=== PATIENT | male | born 1940 | race Caucasian/White ===

== ENCOUNTER 2019-11-17 07:16 | Day surgery (SDC) | payer OTHER ==
[2019-11-13 09:43] VITALS: BP 137/70
[2019-11-13 12:12] LABS: BASOPHILS % (AUTO) 0.4 % (0.0-5.0); HEMATOCRIT 40.6 % (42-54); LYMPHOCYTES % (AUTO) 19.7 % (21.0-51.0); MEAN CORPUSCULAR HEMOGLOBIN 32.3 pg (27.0-33.0); MEAN CORPUSCULAR VOLUME 97.8 fL (79-99); MONOCYTES % (AUTO) 5.7 % (3.0-13.0); NEUTROPHILS % (AUTO) 72.1 % (40.0-77.0); PLATELET COUNT (AUTO) 253 K/uL (130-400); RED BLOOD CELL COUNT(AUTO) 4.15 MIL/uL (4.50-6.20); RED CELL DISTRIBUTION WIDTH 14.3 % (11.0-15.5); WHITE BLOOD COUNT (AUTO) 7.4 K/uL (4.8-10.8)
[2019-11-13 12:20] LABS: CREATININE 0.9 mg/dL (0.5-1.5); POTASSIUM 4.1 mmol/L (3.5-5.1)
[2019-11-13 12:23] LABS: INR 1.02 (0.85-1.15); PARTIAL THROMBOPLASTIN TIME 25.2 SEC (26.3-35.5)
[2019-11-16 08:12] LABS: APPEARANCE,URINE Clear (CLEAR); BILIRUBIN,URINE Negative (NEGATIVE); COLOR,URINE Yellow (YELLOW); GLUCOSE, URINE (UA) Negative (NEGATIVE); KETONES,URINE Negative (NEGATIVE); LEUKOCYTE ESTERASE ,URINE Small (NEGATIVE); NITRATE,URINE Negative (NEGATIVE); OCCULT BLOOD,URINE Negative (NEGATIVE); PROTEIN,URINE Negative (NEGATIVE)
[2019-11-16 09:03] LABS: BACTERIA,URINE Few /HPF (None Seen); CALCIUM OXALATE CRYSTALS,UR Moderate /LPF (None Seen); RBC,URINE 0-1 /HPF (0-1); SQUAMOUS EPITHELIAL CELL,UR 0-2 /HPF (0-2)
[2019-11-17] VITALS (10 sets, daily range): BP systolic 140–159; BP diastolic 56–91
[~2019-11-17] VITALS: Ht 180.3 cm; Wt 86.0 kg
[~2019-11-17 07:16] MED LIST: APIX5TAB PO; ATOR40TA71 PO; CALC-866 PO; DILT240C94 PO; FINA5TAB41 PO; ICOS1CAP PO; METO-391 PO; MULT-660 PO; SODIUM CHLORIDE 0.9% 500ML 500 ML IV SCH; TERA5CAP4 PO; VIT1CAPS47 PO
[2019-11-17] MEDS ORDERED: SODIUM CHLORIDE 0.9% 1000ML 1,000 ML IV ONE (07:41)
[2019-11-17] MEDS ORDERED: HEPARIN SODIUM 1000UNIT/ML 10ML VIAL ONE (08:39)
[2019-11-17] MEDS ORDERED: BIVALIRUDIN 250 MG/VIAL IV ONE (08:39)
[2019-11-17] MEDS ORDERED: MIDAZOLAM HCL 1 MG/ML 2ML VIAL ONE (08:39)
[2019-11-17] MEDS ORDERED: IOHEXOL 350 MG/ML 100ML INFUS..BTL IV ONE (08:39)
[2019-11-17] MEDS ORDERED: IOHEXOL-350 50ML VIAL IV ONE (08:39)
[2019-11-17] MEDS ORDERED: FENTANYL CITRATE PF 50 MCG/1 ML 2ML VIAL ONE (08:40)
[2019-11-17] MEDS ORDERED: NITROGLYCERIN 2 MG/VIAL VIAL IV ONE (08:40)
[2019-11-17] MEDS ORDERED: LIDOCAINE HCL 2% 20ML ONE (08:40)
[2019-11-17] MEDS ORDERED: SODIUM BICARB 50MEQ 50ML VIAL ONE (08:43)
--- NOTE | 2019-11-17 09:45 | NUR ---
PATIENT TAKEN TO [employer]PER[employer] VIA BED BY JANEL ROBERSON.
--- NOTE | 2019-11-17 09:53 | NUR ---
PATIENT ARRIVED TO DAY PATIENT ACCOMPANIED BY SELF. PATIENT AAOX3, RESPIRATIONS UNLABORED, VITAL SIGNS STABLE. DENIES ANY PAIN AT THIS TIME. PROCEDURE VERIFIED AND CONFIRMED WITH PATIENT, HOSPITAL ROUTINE EXPLAINED. ALL QUESTIONS ANSWERED,.
--- NOTE | 2019-11-17 15:36 | NUR ---
DISCHARGE INSTRUCTIONS PROVIDED VIA TELEPHONE TO PATIENT'S SPOUSE (JOSE RAUL DUMAS). FOLLOW UP APPOINTMENT PROVIDED AND INSTRUCTIONS PROVIDED ON FEMORAL SITE CARE. ALL QUESTIONS/CONCERNS ADDRESSED.
--- NOTE | 2019-11-17 16:02 | NUR ---
HANDOFF REPORT GIVEN TO VANESA USING SBAR AT PATIENT'S BEDSIDE.
--- NOTE | 2019-11-17 16:05 | NUR ---
PT AAOX3, NO C/O PAIN TO RT GROIN SITE. INSTRUCTIONS GIVEN TO FAMILY BY WERNER ISLAS . IV D/C , CATHETER INTACT. PT DRESSED WITH ASSISTANCE. PT TAKEN OUT VIA WHEELCHAIR TO CAR, DRIVEN HOME BY FAMILY.
== END 2019-11-17 16:00 | disposition home or self-care (01) ==
LOC: DAH 07:16
PROVIDERS: ATTEND Internal Medicine Cardiovascular Disease
DX: I11.0 Hypertensive heart disease with heart failure (principal); I50.32 Chronic diastolic (congestive) heart failure; I50.22 Chronic systolic (congestive) heart failure; I48.0 Paroxysmal atrial fibrillation; Z79.01 Long term (current) use of anticoagulants; Z79.899 Other long term (current) drug therapy; E78.00 Pure hypercholesterolemia, unspecified
CPT/HCPCS: 36415; 71045; 80048; 81001; 85025; 85610; 85730; 93005; 93460; A4215; A4216; A4221; A4222; A4223 ×3; A4606; A4663; C1760; C1894 ×3; J1644 ×2; J2250; J3010; J3490 ×3; J7030; Q9965 ×2; Q9967; 99156; 99157; J0583

== ENCOUNTER 2021-08-15 11:37 | Emergency (ER) | payer OTHER ==
[~2021-08-15] VITALS: Ht 182.9 cm; Wt 88.5 kg
[~2021-08-15 11:37] MED LIST changes: -ICOS1CAP PO; -SODIUM CHLORIDE 0.9% 500ML 500 ML IV SCH
[2021-08-15 11:48] VITALS: BP 136/75
[2021-08-15 11:58] LABS: BASOPHILS % (AUTO) 0.8 % (0.0-5.0); EOSINOPHILS % (AUTO) 1.9 % (0.0-8.0); HEMATOCRIT 38.2 % (42-54); LYMPHOCYTES % (AUTO) 16.2 % (21.0-51.0); MEAN CORPUSCULAR HEMOGLOBIN 32.8 pg (27.0-33.0); MEAN CORPUSCULAR HGB CONC 33.2 g/dL (32.0-36.0); MEAN CORPUSCULAR VOLUME 98.7 fL (79-99); MONOCYTES % (AUTO) 7.7 % (3.0-13.0); NEUTROPHILS % (AUTO) 73.1 % (40.0-77.0); PLATELET COUNT (AUTO) 223 K/uL (130-400); RED BLOOD CELL COUNT(AUTO) 3.87 MIL/uL (4.50-6.20); RED CELL DISTRIBUTION WIDTH 15.3 % (11.0-15.5); WHITE BLOOD COUNT (AUTO) 7.9 K/uL (4.8-10.8)
[2021-08-15 12:12] LABS: CREATININE 0.9 mg/dL (0.5-1.5); POTASSIUM 4.3 mmol/L (3.5-5.1)
[2021-08-15 12:16] LABS: ALBUMIN 3.8 g/dL (3.5-5.0); BILIRUBIN,TOTAL 0.4 mg/dL (0.2-1.0)
== END 2021-08-15 13:38 | disposition home or self-care (01) ==
LOC: EDH 11:37
DX: R07.89 Other chest pain (principal); I48.91 Unspecified atrial fibrillation; K21.9 Gastro-esophageal reflux disease without esophagitis; E78.00 Pure hypercholesterolemia, unspecified; I10 Essential (primary) hypertension; Z79.899 Other long term (current) drug therapy; Z79.01 Long term (current) use of anticoagulants; Z98.890 Other specified postprocedural states
CPT/HCPCS: 36415; 71045; 80053; 83880; 84484; 85025; 93005

== ENCOUNTER 2021-08-25 07:35 | Day surgery (SDC) | payer OTHER ==
[2021-08-24 12:58] LABS: BASOPHILS % (AUTO) 0.5 % (0.0-5.0); EOSINOPHILS % (AUTO) 2.1 % (0.0-8.0); HEMATOCRIT 41.4 % (42-54); LYMPHOCYTES % (AUTO) 20.8 % (21.0-51.0); MEAN CORPUSCULAR HEMOGLOBIN 31.8 pg (27.0-33.0); MEAN CORPUSCULAR HGB CONC 32.6 g/dL (32.0-36.0); MEAN CORPUSCULAR VOLUME 97.6 fL (79-99); MONOCYTES % (AUTO) 8.2 % (3.0-13.0); NEUTROPHILS % (AUTO) 68.2 % (40.0-77.0); PLATELET COUNT (AUTO) 257 K/uL (130-400); RED BLOOD CELL COUNT(AUTO) 4.24 MIL/uL (4.50-6.20); WHITE BLOOD COUNT (AUTO) 8.4 K/uL (4.8-10.8)
[2021-08-24 13:08] LABS: INR 1.07 (0.85-1.15); PROTHROMBIN TIME 11.6 SEC (9.6-11.6)
[2021-08-24 13:09] LABS: CREATININE 0.8 mg/dL (0.5-1.5); POTASSIUM 4.4 mmol/L (3.5-5.1)
[2021-08-24 13:10] LABS: PARTIAL THROMBOPLASTIN TIME 25.6 SEC (26.3-35.5)
[2021-08-24 13:23] VITALS: BP 140/72
[2021-08-24 14:30] LABS: APPEARANCE,URINE Clear (CLEAR); BILIRUBIN,URINE Negative (NEGATIVE); COLOR,URINE Yellow (YELLOW); GLUCOSE, URINE (UA) Negative (NEGATIVE); KETONES,URINE Negative (NEGATIVE); LEUKOCYTE ESTERASE ,URINE Small (NEGATIVE); NITRATE,URINE Negative (NEGATIVE); OCCULT BLOOD,URINE Negative (NEGATIVE); PROTEIN,URINE Negative (NEGATIVE)
[2021-08-24 14:45] LABS: BACTERIA,URINE Few /HPF (None Seen); RBC,URINE 0-1 /HPF (0-1)
[2021-08-24 14:46] LABS: CALCIUM OXALATE CRYSTALS,UR Rare /LPF (None Seen); SQUAMOUS EPITHELIAL CELL,UR Rare /HPF (0-2)
[2021-08-25] VITALS (8 sets, daily range): BP systolic 145–170; BP diastolic 82–90
[~2021-08-25] VITALS: Ht 182.9 cm; Wt 88.4 kg
[~2021-08-25 07:35] MED LIST changes: +OMEP40CA21 PO
[2021-08-25] MEDS ORDERED: SODIUM BICARB 50MEQ 50ML VIAL 50 ML ONE (12:03)
[2021-08-25] MEDS ORDERED: IOHEXOL-350 50ML VIAL IV ONE ×2 (12:04→12:52)
[2021-08-25] MEDS ORDERED: LIDOCAINE HCL 1% MDV 50ML VIAL ONE (12:04)
[2021-08-25] MEDS ORDERED: IOHEXOL 350 MG/ML 100ML INFUS..BTL IV ONE (12:04)
[2021-08-25] MEDS ORDERED: MIDAZOLAM HCL 1 MG/ML 2ML VIAL ONE (12:18)
[2021-08-25] MEDS ORDERED: NITROGLYCERIN 50MG VIAL ONE (12:18)
[2021-08-25] MEDS ORDERED: FENTANYL CITRATE PF 50 MCG/1 ML 2ML VIAL ONE (12:19)
[2021-08-25] MEDS ORDERED: FUROSEMIDE 20MG VIAL ONE (13:05)
[2021-08-25] MEDS ORDERED: TRIA1TAB3 PO (13:16)
== END 2021-08-25 17:05 | disposition home or self-care (01) ==
LOC: DAH 07:35
PROVIDERS: ATTEND Internal Medicine Cardiovascular Disease
DX: I25.10 Atherosclerotic heart disease of native coronary artery without angina pectoris (principal); I34.0 Nonrheumatic mitral (valve) insufficiency; I27.20 Pulmonary hypertension, unspecified; E78.00 Pure hypercholesterolemia, unspecified; I11.0 Hypertensive heart disease with heart failure; I50.32 Chronic diastolic (congestive) heart failure; G47.33 Obstructive sleep apnea (adult) (pediatric); J44.9 Chronic obstructive pulmonary disease, unspecified; I48.91 Unspecified atrial fibrillation; Z82.49 Family history of ischemic heart disease and other diseases of the circulatory system; Z72.89 Other problems related to lifestyle; Z95.0 Presence of cardiac pacemaker; Z79.01 Long term (current) use of anticoagulants; Z79.899 Other long term (current) drug therapy; Z98.890 Other specified postprocedural states
CPT/HCPCS: 36415; 71045; 80048; 81001; 85025; 85610; 85730; 93005; 93460; A4215; A4216; A4221; A4222; A4223 ×3; A4606; A4663; C1760; C1894 ×3; J1644; J1940; J3010; J3490 ×3; Q9965; Q9967 ×3; 99156; 99157; J2250

== ENCOUNTER → 2022-08-21 | Outpatient (CLI) | payer OTHER ==
[~2022-08-21] MED LIST changes: +TRIA1TAB3 PO
[2022-08-21 12:13] LABS: BASOPHILS % (AUTO) 0.4 % (0.0-5.0); EOSINOPHILS % (AUTO) 0.6 % (0.0-8.0); HEMATOCRIT 43.6 % (42-54); LYMPHOCYTES % (AUTO) 12.3 % (21.0-51.0); MEAN CORPUSCULAR HEMOGLOBIN 32.5 pg (27.0-33.0); MEAN CORPUSCULAR HGB CONC 32.3 g/dL (32.0-36.0); MEAN CORPUSCULAR VOLUME 100.5 fL (79-99); MONOCYTES % (AUTO) 8.6 % (3.0-13.0); NEUTROPHILS % (AUTO) 77.5 % (40.0-77.0); PLATELET COUNT (AUTO) 276 K/uL (130-400); RED BLOOD CELL COUNT(AUTO) 4.34 MIL/uL (4.50-6.20); RED CELL DISTRIBUTION WIDTH 14.5 % (11.0-15.5); WHITE BLOOD COUNT (AUTO) 10.3 K/uL (4.8-10.8)
[2022-08-21 12:25] LABS: ALBUMIN 4.2 g/dL (3.5-5.0); CREATININE 1.1 mg/dL (0.5-1.5); POTASSIUM 4.1 mmol/L (3.5-5.1); TOTAL PROTEIN, SERUM 7.5 g/dL (6.0-8.3)
== END | disposition home or self-care (01) ==
LOC: LAB 10:27
PROVIDERS: ATTEND Internal Medicine Cardiovascular Disease
DX: I11.0 Hypertensive heart disease with heart failure (principal); I50.32 Chronic diastolic (congestive) heart failure; I48.0 Paroxysmal atrial fibrillation; D68.59 Other primary thrombophilia
CPT/HCPCS: 36415; 80053; 80061; 83880; 85025

== ENCOUNTER → 2022-11-28 | Outpatient (CLI) | payer OTHER ==
[~2022-11-28] MED LIST changes: +DILT240C81 PO; -DILT240C94 PO
[2022-11-28 16:35] LABS: CREATININE 0.9 mg/dL (0.5-1.5); POTASSIUM 4.2 mmol/L (3.5-5.1)
== END | disposition home or self-care (01) ==
LOC: LAB 13:51
PROVIDERS: ATTEND Internal Medicine Cardiovascular Disease
DX: I50.32 Chronic diastolic (congestive) heart failure (principal)
CPT/HCPCS: 36415; 80048

== ENCOUNTER → 2023-05-08 | Outpatient (CLI) | payer OTHER ==
[2023-05-08 12:04] LABS: BASOPHILS # (AUTO) 0.05 K/uL (0.00-0.20); BASOPHILS % (AUTO) 0.6 % (0.0-5.0); EOSINOPHILS # (AUTO) 0.05 K/uL (0.00-0.70); EOSINOPHILS % (AUTO) 0.6 % (0.0-8.0); HEMATOCRIT 43.3 % (42-54); IMMATURE GRANULOCYTE ABSOLUTE 0.03 K/uL (0-1); LYMPHOCYTES # (AUTO) 1.4 K/uL (1.0-4.8); LYMPHOCYTES % (AUTO) 15.5 % (21.0-51.0); MEAN CORPUSCULAR HEMOGLOBIN 32.9 pg (27.0-33.0); MEAN CORPUSCULAR HGB CONC 33.3 g/dL (32.0-36.0); MEAN CORPUSCULAR VOLUME 98.9 fL (79-99); MONOCYTES # (AUTO) 0.7 K/uL (0.1-1.0); MONOCYTES % (AUTO) 7.8 % (3.0-13.0); NEUTROPHILS # (AUTO) 6.7 K/uL (1.8-7.7); NEUTROPHILS % (AUTO) 75.2 % (40.0-77.0); PLATELET COUNT (AUTO) 314 K/uL (130-400); RED BLOOD CELL COUNT(AUTO) 4.38 MIL/uL (4.50-6.20); RED CELL DISTRIBUTION WIDTH 14.6 % (11.0-15.5); WHITE BLOOD COUNT (AUTO) 8.9 K/uL (4.8-10.8)
[2023-05-08 12:34] LABS: ALBUMIN 3.8 g/dL (3.5-5.0); BILIRUBIN,TOTAL 1.1 mg/dL (0.2-1.0); CREATININE 0.9 mg/dL (0.5-1.5); POTASSIUM 4.4 mmol/L (3.5-5.1); TOTAL PROTEIN, SERUM 7.1 g/dL (6.0-8.3)
== END | disposition home or self-care (01) ==
LOC: LAB 08:27
PROVIDERS: ATTEND Internal Medicine Cardiovascular Disease
DX: I48.0 Paroxysmal atrial fibrillation (principal); I50.42 Chronic combined systolic (congestive) and diastolic (congestive) heart failure
CPT/HCPCS: 36415; 80053; 80061; 85025

== ENCOUNTER → 2023-06-17 | Outpatient (CLI) | payer OTHER ==
[2023-06-17 12:42] LABS: BASOPHILS # (AUTO) 0.04 K/uL (0.00-0.20); BASOPHILS % (AUTO) 0.4 % (0.0-5.0); EOSINOPHILS # (AUTO) 0.06 K/uL (0.00-0.70); EOSINOPHILS % (AUTO) 0.7 % (0.0-8.0); HEMATOCRIT 45.4 % (42-54); IMMATURE GRANULOCYTE ABSOLUTE 0.03 K/uL (0-1); LYMPHOCYTES # (AUTO) 1.6 K/uL (1.0-4.8); LYMPHOCYTES % (AUTO) 17.8 % (21.0-51.0); MEAN CORPUSCULAR HEMOGLOBIN 33.6 pg (27.0-33.0); MEAN CORPUSCULAR HGB CONC 33.5 g/dL (32.0-36.0); MEAN CORPUSCULAR VOLUME 100.2 fL (79-99); MONOCYTES # (AUTO) 0.8 K/uL (0.1-1.0); MONOCYTES % (AUTO) 8.3 % (3.0-13.0); NEUTROPHILS # (AUTO) 6.6 K/uL (1.8-7.7); NEUTROPHILS % (AUTO) 72.5 % (40.0-77.0); PLATELET COUNT (AUTO) 308 K/uL (130-400); RED BLOOD CELL COUNT(AUTO) 4.53 MIL/uL (4.50-6.20); RED CELL DISTRIBUTION WIDTH 14.6 % (11.0-15.5)
[2023-06-17 13:19] LABS: ALBUMIN 4.1 g/dL (3.5-5.0); BILIRUBIN,TOTAL 0.9 mg/dL (0.2-1.0); CREATININE 0.9 mg/dL (0.5-1.5); POTASSIUM 4.9 mmol/L (3.5-5.1); TOTAL PROTEIN, SERUM 7.7 g/dL (6.0-8.3)
== END | disposition home or self-care (01) ==
LOC: LAB 08:03
PROVIDERS: ATTEND Internal Medicine Cardiovascular Disease
DX: I50.42 Chronic combined systolic (congestive) and diastolic (congestive) heart failure (principal); I48.0 Paroxysmal atrial fibrillation
CPT/HCPCS: 36415; 80053; 80061; 85025

== ENCOUNTER → 2023-10-30 | Outpatient (CLI) | payer OTHER | END | disposition home or self-care (01) | LOC: LAB 09:37 | PROVIDERS: ATTEND Internal Medicine Cardiovascular Disease | DX: R06.00 Dyspnea, unspecified (principal); R53.1 Weakness; Z95.0 Presence of cardiac pacemaker | CPT/HCPCS: 36415; 80048; 83880 ==

== ENCOUNTER → 2023-12-09 | Outpatient (CLI) | payer OTHER ==
[2023-12-09 12:20] LABS: BASOPHILS # (AUTO) 0.07 K/uL (0.00-0.20); BASOPHILS % (AUTO) 0.5 % (0.0-5.0); EOSINOPHILS # (AUTO) 0.11 K/uL (0.00-0.70); EOSINOPHILS % (AUTO) 0.8 % (0.0-8.0); HEMATOCRIT 47.4 % (42-54); IMMATURE GRANULOCYTE ABSOLUTE 0.08 K/uL (0-1); LYMPHOCYTES # (AUTO) 2.5 K/uL (1.0-4.8); LYMPHOCYTES % (AUTO) 17.1 % (21.0-51.0); MEAN CORPUSCULAR HEMOGLOBIN 33.1 pg (27.0-33.0); MEAN CORPUSCULAR HGB CONC 32.3 g/dL (32.0-36.0); MEAN CORPUSCULAR VOLUME 102.6 fL (79-99); MONOCYTES % (AUTO) 6.6 % (3.0-13.0); NEUTROPHILS # (AUTO) 10.7 K/uL (1.8-7.7); NEUTROPHILS % (AUTO) 74.4 % (40.0-77.0); PLATELET COUNT (AUTO) 285 K/uL (130-400); RED BLOOD CELL COUNT(AUTO) 4.62 MIL/uL (4.50-6.20); RED CELL DISTRIBUTION WIDTH 14.8 % (11.0-15.5); WHITE BLOOD COUNT (AUTO) 14.3 K/uL (4.8-10.8)
[2023-12-09 12:29] LABS: ALBUMIN 4.1 g/dL (3.5-5.0); BILIRUBIN,TOTAL 0.7 mg/dL (0.2-1.0); MAGNESIUM 2.1 mg/dL (1.80-2.40); POTASSIUM 4.7 mmol/L (3.5-5.1); TOTAL PROTEIN, SERUM 7.8 g/dL (6.0-8.3)
== END | disposition home or self-care (01) ==
LOC: LAB 12-06 10:41
PROVIDERS: ATTEND Internal Medicine Cardiovascular Disease
DX: I48.0 Paroxysmal atrial fibrillation (principal); R06.00 Dyspnea, unspecified; Z79.899 Other long term (current) drug therapy
CPT/HCPCS: 36415; 80053; 80061; 83735; 85025

== ENCOUNTER → 2024-07-17 | Outpatient (CLI) | payer OTHER ==
[2024-07-17 12:10] LABS: BASOPHILS # (AUTO) 0.05 K/uL (0.00-0.20); BASOPHILS % (AUTO) 0.6 % (0.0-5.0); EOSINOPHILS # (AUTO) 0.14 K/uL (0.00-0.70); EOSINOPHILS % (AUTO) 1.6 % (0.0-8.0); HEMATOCRIT 33.9 % (42-54); IMMATURE GRANULOCYTE ABSOLUTE 0.06 K/uL (0-1); LYMPHOCYTES # (AUTO) 1.6 K/uL (1.0-4.8); LYMPHOCYTES % (AUTO) 17.6 % (21.0-51.0); MEAN CORPUSCULAR HEMOGLOBIN 33.8 pg (27.0-33.0); MEAN CORPUSCULAR HGB CONC 31.6 g/dL (32.0-36.0); MEAN CORPUSCULAR VOLUME 106.9 fL (79-99); MONOCYTES # (AUTO) 0.9 K/uL (0.1-1.0); MONOCYTES % (AUTO) 10.3 % (3.0-13.0); NEUTROPHILS # (AUTO) 6.2 K/uL (1.8-7.7); NEUTROPHILS % (AUTO) 69.2 % (40.0-77.0); PLATELET COUNT (AUTO) 492 K/uL (130-400); RED BLOOD CELL COUNT(AUTO) 3.17 MIL/uL (4.50-6.20); RED CELL DISTRIBUTION WIDTH 16.3 % (11.0-15.5); WHITE BLOOD COUNT (AUTO) 8.9 K/uL (4.8-10.8)
[2024-07-17 12:38] LABS: CREATININE 0.8 mg/dL (0.5-1.3); POTASSIUM 4.4 mmol/L (3.5-5.1)
== END | disposition home or self-care (01) ==
LOC: LAB 10:55
PROVIDERS: ATTEND Physician Assistant
DX: T14.8XXA Other injury of unspecified body region, initial encounter (principal); I48.21 Permanent atrial fibrillation; X58.XXXA Exposure to other specified factors, initial encounter; Y93.89 Activity, other specified; Y92.89 Other specified places as the place of occurrence of the external cause; Y99.8 Other external cause status
CPT/HCPCS: 36415; 80048; 85025

== ENCOUNTER 2024-07-23 11:58 | Observation (INO) | payer OTHER ==
[~2024-07-23] VITALS: Ht 182.9 cm; Wt 87.1 kg
[2024-07-23 14:10] LABS: HEMATOCRIT 35.5 % (42-54); MEAN CORPUSCULAR HEMOGLOBIN 33.4 pg (27.0-33.0); MEAN CORPUSCULAR HGB CONC 31.5 g/dL (32.0-36.0); RED BLOOD CELL COUNT(AUTO) 3.35 MIL/uL (4.50-6.20); RED CELL DISTRIBUTION WIDTH 16.3 % (11.0-15.5)
[2024-07-23 14:19] LABS: CREATININE 0.9 mg/dL (0.5-1.3); POTASSIUM 4.1 mmol/L (3.5-5.1)
[2024-07-23 14:31] LABS: INR 1.08 (0.85-1.15); PROTHROMBIN TIME 11.4 SEC (9.6-11.6)
[2024-07-23 14:32] LABS: PARTIAL THROMBOPLASTIN TIME 23.9 SEC (26.3-35.5)
[2024-07-23] MEDS: VANCOMYCIN KIT 1 GM/250 ML IV.KIT IV SCH (14:54)
[2024-07-23] MEDS ORDERED: SOLI5 PO (15:20)
[2024-07-23] MEDS ORDERED: DOXY20TA20 PO (15:20)
[2024-07-23] MEDS ORDERED: FURO40TA5 PO (15:20)
[2024-07-23] MEDS ORDERED: POTA-200 PO (15:20)
[2024-07-23] MEDS ORDERED: DONE5TAB33 PO (15:20)
[2024-07-23] MEDS ORDERED: VERE240SR PO (15:20)
[2024-07-24] VITALS (7 sets, daily range): BP systolic 141–153; BP diastolic 69–80; PULSE 60–66; RESP 15; TEMP 97.2; O2SAT 97
[2024-07-24] MEDS ORDERED: VANCOMYCIN 1G/250ML KIT 250 ML IV ONE ×2 (11:04→11:27)
[2024-07-24] MEDS ORDERED: HEParin-NS 1,000 UNIT/500 ML 500 ML IV ONE (11:04)
[2024-07-24] MEDS ORDERED: LIDOCAINE HCL 400MG/20ML VIAL ONE (11:04)
--- NOTE | 2024-07-24 11:21 | NUR ---
patient taken to concrete laborer
[2024-07-24] MEDS ORDERED: LIDOCAINE HCL 1% MDV 50ML VIAL ONE (11:27)
[2024-07-24] MEDS ORDERED: BUPIvacaine/PF 0.25% 30ML VIAL IJ ONE (11:27)
[2024-07-24] MEDS ORDERED: FENTanyl CITRate PF 50 MCG/1 ML 2ML VIAL ONE ×2 (11:30→12:46)
[2024-07-24] MEDS ORDERED: MIDAZOLAM HCL 1 MG/ML 2ML VIAL ONE ×2 (11:30→12:16)
[2024-07-24] MEDS ORDERED: BACITRACIN 1 EACH PACKET TP ONE (12:38)
[2024-07-24] MEDS ORDERED: TRAM50TA4 PO ×2 (13:18→13:52)
[2024-07-24] MEDS ORDERED: acetaMINOPHEN 500 MG TABLET PO PRN (13:30)
[2024-07-24] MEDS ORDERED: acetaMINOPHEN WITH coDEINE 1 TAB TAB PO PRN ×2 (13:30)
[2024-07-24] MEDS ORDERED: DOXY100T2 PO (13:52)
--- NOTE | 2024-07-24 14:00 | NUR ---
NOTED EXTENSIVE BRUISING TO PT CHEST LEFT LATERAL CHEST/FLANK AND BACK.
--- NOTE | 2024-07-27 11:11 | PRN ---
Procedure Note INDICATION FOR PROCEDURE: Pacemaker pocket hematoma PROCEDURE: Hematoma evacuation DATE OF PROCEDURE: 07/24/2024 AUDIT PARTNER: Jorje Queen MD PROCEDURE NOTE: The patient was brought to the laborer airport maintenance in a fasting state. Moderate sedation was achieved. Local anesthetic was applied to the incision site. A small incision was made at the previous site. Hematoma fluid was evacuated and sent for culture. The incision was then extended in the pocket was opened in its entirety. There was no visible evidence of infection. Clot was removed and the pocket was irrigated with an antibiotic containing solution. The device was not disconnected. This was then placed back into the pocket and secured via the suture sleeve to the pectoralis fascia. In addition, a tie was placed around the proximal portion of the leads to prevent movements of the device in the pocket which had expanded due to the hematoma. The pocket was then closed with 2-0 Vicryl in two layers with a subcutaneous tissues and then the skin was closed with chauncey. A sterile dressing as well as a pressure dressing were applied and the patient was returned to his room in stable condition. IMPRESSION: Pacemaker pocket hematoma, status post evacuation. JORJE QUEEN MD Jul 27, 2024 11:11
== END 2024-07-24 14:50 | disposition home or self-care (01) ==
LOC: EDH 11:58 → EDHIP 11:59
PROVIDERS: ADMIT Internal Medicine Cardiovascular Disease; ATTEND Internal Medicine Cardiovascular Disease
DX: I48.21 Permanent atrial fibrillation (principal); I97.630 Postprocedural hematoma of a circulatory system organ or structure following a cardiac catheterization; Z79.899 Other long term (current) drug therapy; Z98.890 Other specified postprocedural states
CPT/HCPCS: 96374; 80048; 85027; 85610; 85730; 36415; 10140; 96376; 87070; 87076; G0378 ×26; J3370 ×4; J3010 ×2; J3490 ×2; J0665; J2250 ×2; J1644; 99156; 99157

== ENCOUNTER 2024-11-09 10:59 | Emergency (ER) | payer OTHER ==
[~2024-11-09] VITALS: Ht 182.9 cm; Wt 86.6 kg
[~2024-11-09 10:59] MED LIST changes: -APIX5TAB PO; -CALC-866 PO; -DILT240C81 PO; +DONE5TAB33 PO; +DOXY100T2 PO; +FURO40TA5 PO; -MULT-660 PO; -OMEP40CA21 PO; +POTA-200 PO; +SOLI5 PO; -TERA5CAP4 PO; +TRAM50TA4 PO; -TRIA1TAB3 PO; +VERE240SR PO
--- NOTE | 2024-11-09 11:08 | ERN ---
ED Note History of Present Illness Stated Complaint: INJURY DUE TO FALL;REFERRAL BY PHYSICIAN FOR XRAYS Chief Complaint: Rib Pain Time Seen by : 11:01 Dictation: PATIENT IS A 84-YEAR-OLD MALE COMING IN FROM A [facility] WITH COMPLAINTS OF A LEFT LATERAL CHEST PAIN STATUS POST A FALL ON SATURDAY. HE STATES HE HAD BEEN WORKING IN THE [place] WHEN HE WALKED OUT AND HE FELL DOWN. PER THE WHO WITNESSED THE FALL, HE DOES NOT REMEMBER THE FALL HOWEVER HE DID NOT HIT HIS HEAD NO BLOOD THINNERS NO LOC. HE DID NOT GO TO THE HOSPITAL AT THAT TIME. HE HAD UNTIL TODAY AND SEEN BY THE [facility] AND THEN REFERRED TO US. SHE STATES LATELY HAS BEEN FEELING VERY WEAK SINCE BEFORE THE FALL. AND ALSO HAVING SOME MEMORY CHANGES THAT WAS NOT REPORTED TO THE [facility]. HE IS NOT ON ANY BLOOD THINNERS HE IS AMBULATORY AND SPEECH IS CLEAR. HEAD DOES NOT DEMONSTRATE ANY PATTERSON OR RACCOON SIGN NO HEMOTYMPANUM, NO CONTUSIONS OR HEMATOMAS. HAS NO MIDLINE SPINE PAIN. PATIENT HAD A RIB BELT IN PLACE AND WAS ADVISED TO TAKE IT OFF Allergies: Coded Allergies: No Known Allergies (Verified Allergy, 07/23/13) Home Meds Active Scripts Doxycycline Hyclate (Doxycycline Hyclate) 100 Mg Tablet, 1 TAB PO BID for 7 Days, #14 TAB 0 Refills Prov:LIZETT QUEEN MD 07/24/24 Tramadol Hcl (Tramadol HCl) 50 Mg Tablet, 50 MG PO Q6HPRN PRN for PAIN, #15 TAB 0 Refills Prov:LIZETT QUEEN MD 07/24/24 Reported Medications Solifenacin Succinate (Vesicare) 5 Mg Tablet, 5 MG PO HS, TAB 07/23/24 Potassium Chloride (Potassium Chloride) 10 Meq Tab.er.prt, 10 MEQ PO DAILY 07/23/24 Verapamil HCl (Verapamil ER) 240 Mg Cap24h.pel, 240 MG PO DAILY 07/23/24 Donepezil HCl (Donepezil HCl) 5 Mg Tablet, 5 MG PO DAILY, TAB 07/23/24 Furosemide (Furosemide) 40 Mg Tablet, 40 MG PO DAILY, TAB 07/23/24 Vit C/E/Zn/Coppr/Lutein/Zeaxan (Preservision Areds 2 Softgel) 1 Each Capsule, 1 EACH PO BID, CAP 6/22/20 Atorvastatin Calcium (Atorvastatin Calcium) 40 Mg Tablet, 40 MG PO DAILY, TAB 11/16/19 Metoprolol Succinate (Metoprolol Succinate) 50 Mg Tab.er.24h, 25 MG PO DAILY, TAB 11/16/19 Finasteride (Finasteride) 5 Mg Tablet, 5 MG PO HS, TAB 11/16/19 Past Medical History Past Medical History: A-Fib, Angina, GERD, High Cholesterol, Heart Disease, Hypertension Surgical History: Other Surgical History Other: COLON, HERNIA REPAIR Social History: Other RN Note Reviewed/Agreed w/PFSH: Yes Review of System Dictation CONSTITUTIONAL: NEGATIVE EXCEPT FOR HPI HEAD/FACE: NEGATIVE EXCEPT FOR HPI EENT: NEGATIVE EXCEPT FOR HPI RESPIRATORY: NEGATIVE EXCEPT FOR HPI LEFT LATERAL RIB CHEST WALL PAIN. GASTROINTESTINAL/ABDOMINAL: NEGATIVE EXCEPT FOR HPI GENITOURINARY: NEGATIVE EXCEPT FOR HPI MUSCULOSKELETAL: NEGATIVE EXCEPT FOR HPI INTEGUMENTARY: NEGATIVE EXCEPT FOR HPI NEUROLOGICAL/PSYCH: NEGATIVE EXCEPT FOR HPI RECENT MEMORY CHANGES HEMATOLOGIC/LYMPHATIC: NEGATIVE EXCEPT FOR HPI ALL SYSTEMS NEGATIVE, EXCEPT NOTED ABOVE. 13 POINT REVIEW OF SYSTEMS ASSESSED AND ALL NEGATIVE EXCEPT FOR ABOVE. Initial Vital Sign VS Vital Signs Date Time Temp Pulse Resp B/P (MAP) Pulse Ox O2 Delivery O2 Flow Rate FiO2 11/09/24 11:03 98.6 77 16 166/94 96 Room Air 6.0 11/09/24 11:26 21 Physical Exam Dictation VITAL SIGNS REVIEWED GENERAL APPEARANCE: ALERT, ORIENTED X 3, NO ACUTE DISTRESS, WELL DEVELOPED, NOURISHED. PATIENT DOES STATE HE COULD NOT RECALL THE FALL. HEAD AND FACE: NON-TRAUMATIC. EYES: PERRL, PINK CONJUNCTIVAS, EYELID NO TRAUMA, ANTERIOR CHAMBER WITH ARCUS SENILIS. EARS: PINNAS INTACT AND NO SIGNS OF TRAUMA OR ERYTHEMA EAR CANALS CLEAR AND NO DISCHARGE TM NO ERYTHEMA NOSE: NO DISCHARGE, NO BLEEDING. OROPHARYNX: MOUTH NORMAL, TONGUE PINK, PHARYNX CLEAR,NO ERYTHEMA, TONSILS NO EXUDATES, NO ABSCESSES NOTED, MUCOUS MEMBRANE MOIST NECK: SUPPLE, NON-TENDER, NO THYROMEGALY, NO MASSES, NO JVD, NO BRUITS BREAST:DEFERRED CHEST: MODERATE LEFT LATERAL CHEST WALL TENDERNESS WITH PALPATION TENDERNESS, NO CREPITUS, NO PARADOXICAL MOVEMENT, NO RETRACTIONS NO FLAIL T LUNGS:CLEAR, WELL-VENTILATED, SYMMETRIC, NO RALES, NO WHEEZING, NO RHONCHI, NO STRIDOR, GOOD BREATH SOUNDS BILATERALLY HEART: REGULAR RATE, REGULAR RHYTHM, NO MURMUR, NO GALLOPS VASCULAR: NO PERIPHERAL EDEMA, ABDOMEN: SOFT, POSITIVE BOWEL SOUNDS, NONDISTENDED, NO GUARDING, NONTENDER, NO REBOUND, NO MASSES NO HEPATOMEGALY, NO SPLENOMEGALY, NO RAGLAND'S SIGN, NO HERNIAS. RECTAL: DEFERRED GENITAL: DEFERRED NEUROLOGICAL: NORMAL SPEECH, MOTOR FUNCTION INTACT, SENSORY FUNCTION INTACT MUSCULOSKELETAL: NECK NONTENDER, FULL RANGE OF MOTION, BACK NONTENDER, FULL RANGE OF MOTION, EXTREMITIES: NONTENDER, FULL RANGE OF MOTION SKIN: COLOR PINK, DRY, NO TURGOR, NO RASH, NO LACERATIONS, NO ABRASIONS, NO CONTUSIONS. LYMPHATIC: DEFERRED Results (Laboratory/Radiology) Laboratory/Radiology Laboratory Tests Test 11/09/24 11:12 11/09/24 11:31 White Blood Count 12.5 K/uL (4.8-10.8) H Red Blood Count 4.61 MIL/uL (4.50-6.20) Hemoglobin 15.2 g/dL (14.0-18.0) Hematocrit 44.8 % (42-54) Mean Corpuscular Volume 97.2 fL (79-99) Mean Corpuscular Hemoglobin 33.0 pg (27.0-33.0) Mean Corpuscular Hemoglobin Concent 33.9 g/dL (32.0-36.0) Red Cell Distribution Width 15.9 % (11.0-15.5) H Platelet Count 246 K/uL (130-400) Mean Platelet Volume 10.5 fL (7.5-10.5) Immature Granulocyte % (Auto) 0.5 % (0-1) Neutrophils (%) (Auto) 74.8 % (40.0-77.0) Lymphocytes (%) (Auto) 12.7 % (21.0-51.0) L Monocytes (%) (Auto) 10.4 % (3.0-13.0) Eosinophils (%) (Auto) 1.0 % (0.0-8.0) Basophils (%) (Auto) 0.6 % (0.0-5.0) Neutrophils # (Auto) 9.3 K/uL (1.8-7.7) H Lymphocytes # (Auto) 1.6 K/uL (1.0-4.8) Monocytes # (Auto) 1.3 K/uL (0.1-1.0) H Eosinophils # (Auto) 0.12 K/uL (0.00-0.70) Basophils # (Auto) 0.07 K/uL (0.00-0.20) Absolute Immature Granulocyte (auto 0.06 K/uL (0-1) Nucleated Red Blood Cells 0.0 % (0.0-0.19) Sodium Level 140 mmol/L (136-145) Potassium Level 4.2 mmol/L (3.5-5.1) Chloride Level 101 mmol/L (101-111) Carbon Dioxide Level 29 mmol/L (21-32) Blood Urea Nitrogen 19 mg/dL (7-18) H Creatinine 0.8 mg/dL (0.5-1.3) Glomerular Filtration Rate Calc 86 mL/min (>90) Random Glucose 100 mg/dL (70-105) Total Calcium 9.1 mg/dL (8.5-10.1) Magnesium Level 1.90 mg/dL (1.80-2.40) Troponin I High Sensitivity 17 ng/L (4-75) B-Type Natriuretic Peptide 617 pg/mL (0-100) H Urine Color COLORLESS (YELLOW) Urine Appearance CLEAR (CLEAR) Urine pH 5.5 (5.0-8.0) Urine Specific [place] 1.008 (1.001-1.031) Urine Protein NEGATIVE mg/dL (NEGATIVE) Urine Glucose (UA) NEGATIVE mg/dL (NEGATIVE) Urine Ketones NEGATIVE mg/dL (NEGATIVE) Urine Occult Blood NEGATIVE (NEGATIVE) Urine Nitrate NEGATIVE (NEGATIVE) Urine Bilirubin NEGATIVE mg/dL (NEGATIVE) Urine Urobilinogen 0.2 mg/dL (0.2-1.0) Urine Leukocyte Esterase NEGATIVE Isabell/uL 1300/RIB SERIES DEMONSTRATES NO OVERT FRACTURES, NO PNEUMONIA PACEMAKER IN PLACE Labs Reviewed?: Yes EKG Comment: EKG AV PACED RHYTHM/VENTRICULAR RATE 64/NO ECTOPY ED Course ED Course Orders Procedure Category Date Status Time Ribs Uni Lt W Pa RAD 11/09/24 Taken Chest 3+Vws 11:03 Cbc With Differential LAB 11/09/24 Complete 11:03 B-Type Natriuretic LAB 11/09/24 Complete Peptide 11:03 12 Lead Ekg Tracing- EKG 11/09/24 Complete Technical 11:03 Magnesium LAB 11/09/24 Complete 11:03 Troponin I High LAB 11/09/24 Complete Sensitivity 11:03 Urinalysis Profile LAB 11/09/24 Complete 11:03 Basic Metabolic Panel LAB 11/09/24 Complete 11:03 Acetaminophen 500mg PHA 11/09/24 Complete Tab (Tylenol 500mg T 11:30 Current Medications Medications (Trade) Dose Ordered Sig/Valeria Route PRN Reason Start Time Stop Time Status Last Admin Dose Admin Acetaminophen (TYLenol 500MG TAB) 1,000 mg ONCE ONCE PO 11/09/24 11:30 11/09/24 11:31 DC 11/09/24 11:40 Vital Signs Date Time Temp Pulse Resp B/P (MAP) Pulse Ox O2 Delivery O2 Flow Rate FiO2 11/09/24 11:26 98.6 75 16 166/94 96 Room Air* 0 21 11/09/24 11:03 98.6 77 16 166/94 96 Room Air 6.0 Medical Decision Making [facility] 1300 MEDICAL DISCHARGE MAKING BASED ON BASIC LABS URINALYSIS AN RIB SERIES FOR A FALL YESTERDAY. ADDITIONALLY PATIENT STATES HE HAS HAD SOME MILD CONFUSION LATELY HOWEVER NO HEADACHE NO CHANGE IN PERSONALITY SAID HE IS BASELINE. WORKUP IS ESSENTIALLY NEGATIVE RIB SERIES IS CLEAR FOR RIB FRACTURES. PATIENT DISCHARGED HOME AND TOLD TO FOLLOW UP WITH HIS DOCTOR AT [facility]. ALSO INCREASE HIS WATER INTAKE. DX & DISP Disposition: Discharge Departure Impression: Primary Impression: Contusion of left chest wall Additional Impressions: Fall, Mild dehydration Condition: Stable Additional Instructions: FOLLOW-UP WITH PRIMARY CARE PROVIDER IN 1 TO 2 DAYS. TAKE MEDICATIONS DIRECTED HERE IN THE EMERGENCY ROOM. OKAY TO CONTINUE HOME MEDICATIONS UNLESS OTHERWISE DISCUSSED DURING YOUR VISIT IN THE EMERGENCY ROOM TODAY. RETURN TO YOUR NEAREST EMERGENCY ROOM IF SYMPTOMS WORSEN OR IF THERE IS NO IMPROVEMENT. CALL 911 IF YOU NEED IMMEDIATE ASSISTANCE. TAKE TYLENOL OR MOTRIN [id number] NEEDED AND IF NO CONTRAINDICATIONS ARE PRESENT. INCREASE ORAL HYDRATION. A WOUND CULTURE OR URINE CULTURE WAS ORDERED HERE IN THE EMERGENCY ROOM DEPARTMENT PLEASE FOLLOW-UP WITH PRIMARY CARE PROVIDER AND ADVISE THEM TO GET REPEAT PORTS FROM OUR FACILITY. IF YOU HAD ANY KEITH WRAP/SPLINTS THAT WERE APPLIED HERE, PLEASE DO NOT REMOVE THEM UNTIL YOU SEE YOUR PRIMARY CARE OR SPECIALTY. INCREASE YOUR WATER INTAKE. TAKE TYLENOL [id number] NEEDED FOR PAIN. FOLLOW UP WITH YOUR DOCTOR AT THE [facility]. Referrals: JORDAN DEL VALLE MD (PCP) Time of Disposition: 13:02 I have reviewed the case, and I agree with, Diagnosis and Plan BEVERLY ACEVEDO NP Nov 09, 2024 11:08
[2024-11-09 11:23] LABS: BASOPHILS # (AUTO) 0.07 K/uL (0.00-0.20); BASOPHILS % (AUTO) 0.6 % (0.0-5.0); EOSINOPHILS # (AUTO) 0.12 K/uL (0.00-0.70); HEMATOCRIT 44.8 % (42-54); IMMATURE GRANULOCYTE ABSOLUTE 0.06 K/uL (0-1); LYMPHOCYTES # (AUTO) 1.6 K/uL (1.0-4.8); LYMPHOCYTES % (AUTO) 12.7 % (21.0-51.0); MEAN CORPUSCULAR HGB CONC 33.9 g/dL (32.0-36.0); MEAN CORPUSCULAR VOLUME 97.2 fL (79-99); MONOCYTES # (AUTO) 1.3 K/uL (0.1-1.0); MONOCYTES % (AUTO) 10.4 % (3.0-13.0); NEUTROPHILS # (AUTO) 9.3 K/uL (1.8-7.7); NEUTROPHILS % (AUTO) 74.8 % (40.0-77.0); PLATELET COUNT (AUTO) 246 K/uL (130-400); RED BLOOD CELL COUNT(AUTO) 4.61 MIL/uL (4.50-6.20); RED CELL DISTRIBUTION WIDTH 15.9 % (11.0-15.5); WHITE BLOOD COUNT (AUTO) 12.5 K/uL (4.8-10.8)
[2024-11-09 11:30] LABS: CREATININE 0.8 mg/dL (0.5-1.3); MAGNESIUM 1.9 mg/dL (1.80-2.40); POTASSIUM 4.2 mmol/L (3.5-5.1)
--- NOTE | 2024-11-09 11:30 | EKG ---
[facility] Test Date: 2024-11-09 Test Time: 11:28:09 Pat Name: ESTHER DUMAS Department: ED Room: Gender: M Elementary Tutor: [id number] : 1940 Requested By: BEVERLY ACEVEDO Order Number: [id number] Reading MD: Yariel Cohen Measurements Intervals [place] Rate: 64 P: 0 MA: 76 QRS: -74 QRSD: 159 T: 88 QT: 450 QTc: 466 Interpretive Statements Ventricular-paced rhythm Underlying rhythm may be atrial fibrillation Compared to ECG 08/24/2021 12:36:12 No significant changes Electronically Signed On 11-11-2024 10:13:46 CDT by Yariel Cohen Please click the below link to view image of tracing.
[2024-11-09] MEDS: acetaMINOPHEN 500 MG TABLET PO ONE (11:40)
[2024-11-09 11:48] LABS: APPEARANCE,URINE CLEAR (CLEAR); BILIRUBIN,URINE NEGATIVE (NEGATIVE); COLOR,URINE COLORLESS (YELLOW); GLUCOSE, URINE (UA) NEGATIVE (NEGATIVE); KETONES,URINE NEGATIVE (NEGATIVE); LEUKOCYTE ESTERASE ,URINE NEGATIVE Leu/uL (NEGATIVE); NITRATE,URINE NEGATIVE (NEGATIVE); OCCULT BLOOD,URINE NEGATIVE (NEGATIVE); PH,URINE 5.5 (5.0-8.0); PROTEIN,URINE NEGATIVE (NEGATIVE); UROBILINOGEN,URINE 0.2 mg/dL (0.2-1.0)
[2024-11-09 11:49] LABS: B-TYPE NATRIURETIC PEPTIDE 617 pg/mL (0-100)
[2024-11-09 11:49] LABS: ADD UA MICROSCOPIC NO
[2024-11-09 13:03] VITALS: BP 164/85; PULSE 78; RESP 16; TEMP 98.6; O2SAT 96
--- NOTE | 2024-11-09 13:20 | HMCIMG ---
RIBS UNI LT W PA CHEST 3+VWS REASON: LEFT LATERAL RIB AND CHEST PAIN STATUS POST FALL SATURDAY.. COMPARISON: None TECHNIQUE: Frontal projection of the chest was obtained. 4 images of left ribs were obtained. FINDINGS: No acute pulmonary infiltrates is seen. The heart is enlarged. Pacemaker is seen entering from the left. Aortic calcifications are seen. Small left pleural effusion is seen. Degenerative changes are seen. No acute displaced fracture is seen. IMPRESSION: Uneventful described above.
== END 2024-11-09 13:13 | disposition home or self-care (01) ==
LOC: EDH 10:59
DX: S20.212A Contusion of left front wall of thorax, initial encounter (principal); E86.0 Dehydration; E78.00 Pure hypercholesterolemia, unspecified; I11.9 Hypertensive heart disease without heart failure; I48.91 Unspecified atrial fibrillation; Z79.899 Other long term (current) drug therapy; Z98.890 Other specified postprocedural states; K21.9 Gastro-esophageal reflux disease without esophagitis; W18.39XA Other fall on same level, initial encounter; Y93.89 Activity, other specified; Y92.89 Other specified places as the place of occurrence of the external cause; Y99.8 Other external cause status
CPT/HCPCS: 36415; 71101; 80048; 81003; 83735; 83880; 84484; 85025; 93005; 99285